=== PATIENT | male | born 1960 | race Caucasian/White ===

== ENCOUNTER 2018-02-16 10:49 | Observation (INO) | payer BC ==
[~2018-02-16] VITALS: Ht 177.8 cm; Wt 65.0 kg
[~2018-02-16 10:49] MED LIST: HYDR-2768 PO; LISI-363 PO; NORV10TA PO
[2018-02-16 11:00] VITALS: BP 159/76; PULSE 94; RESP 16; TEMP 97.3; O2SAT 99
[2018-02-16] MEDS ORDERED: AMLO10TA2 PO (11:13)
[2018-02-16] MEDS ORDERED: LISI-515 PO (11:13)
[2018-02-16 11:17] VITALS: BP 173/93; PULSE 91; RESP 18; O2SAT 99
--- NOTE | 2018-02-16 11:38 | PD ---
HPI Chief Complaint: Chest Pain Time Seen by Provider: 11:31 Travel History International Travel<30 days: No Contact w/Intl Traveler<30days: No Traveled to known affect area: No History of Present Illness HPI 57-year-old male with PMH of hypertension presents the ED for evaluation of intermittent chest pain times "a couple weeks." He states that around 830 last night he had sharp, 10/10 pain in the left chest with accompanying diaphoresis and shortness of breath. He states this lasted a few minutes before resolving. He endorses 2 more similar episodes last night. He states that today he has been having momentary similar episodes of CP that resolve spontaneously. He denies fever, chills, nausea, vomiting. He states that his father had a fatal NE at age 71. He endorses a 40+-pack-year smoking history, quit 5 years ago. Endorses occasional marijuana use. Denies alcohol or other illicit drug use. He treated at home with metoprolol with no improvement of symptoms. He is not compliant with his medications daily, states "I take them as I feel like I need them." He has never had a stress test or cardiac workup. He is followed by Dr. Hassan, resident clinic. 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 SKIN: Focused skin assessment warm/dry. HEAD: Normocephalic. EYES: No scleral icterus. No injection or drainage. NECK: Supple, trachea midline. No JVD or lymphadenopathy. CARDIOVASCULAR: Regular rate and rhythm without murmurs, gallops, or rubs. CHEST: +TTP of the left anterior precordium. No deformity or crepitus. No retractions. RESPIRATORY: Breath sounds clear and equal bilaterally. No accessory muscle use. GASTROINTESTINAL: Abdomen soft, non-tender, nondistended. Active bowel sounds. MUSCULOSKELETAL: No cyanosis, or edema. BACK: Nontender without obvious deformity. No CVA tenderness. Data Data Last Documented VS Vital Signs Date Time Temp Pulse Resp B/P (MAP) Pulse Ox O2 Delivery O2 Flow Rate FiO2 02/16/18 12:05 78 18 136/77 (96) 96 Room Air 02/16/18 11:00 97.3 Orders Orders Electrocardiogram (02/16/18 11:31) Ckmb (Isoenzyme) Profile (02/16/18 11:31) Complete Blood Count With Diff (02/16/18 11:31) Comprehensive Metabolic Panel (02/16/18 11:31) Magnesium (Mg) (02/16/18 11:31) Prothrombin Time / Inr (Pt) (02/16/18 11:31) Act Partial Throm Time (Ptt) (02/16/18 11:31) Troponin I (02/16/18 11:31) Ecg Monitoring (02/16/18 11:31) Bilateral Bp Monitoring (02/16/18 11:31) Iv Access Insert/Monitor (02/16/18 11:31) Oximetry (02/16/18 11:31) Aspirin (Aspirin) (02/16/18 11:45) Nitroglycerin 2% Oint (Nitroglycerin 2% (02/16/18 11:45) Sodium Chloride 0.9% Flush (Ns Flush) (02/16/18 11:45) Sodium Chlorid 0.9% 500 Ml Inj (Ns 500 M (02/16/18 11:45) Chest, Pa & Lat (02/16/18 11:31) Admit Order (Ed Use Only) (02/16/18 12:32) Labs Laboratory Tests Test 02/16/18 11:35 White Blood Count 6.6 TH/MM3 Red Blood Count 4.39 MIL/MM3 Hemoglobin 12.9 GM/DL Hematocrit 38.0 % Mean Corpuscular Volume 86.4 FL Mean Corpuscular Hemoglobin 29.3 PG Mean Corpuscular Hemoglobin Concent 33.9 % Red Cell Distribution Width 13.6 % Platelet Count 418 TH/MM3 Mean Platelet Volume 7.6 FL Neutrophils (%) (Auto) 62.8 % Lymphocytes (%) (Auto) 31.2 % Monocytes (%) (Auto) 4.4 % Eosinophils (%) (Auto) 1.4 % Basophils (%) (Auto) 0.2 % Neutrophils # (Auto) 4.2 TH/MM3 Lymphocytes # (Auto) 2.1 TH/MM3 Monocytes # (Auto) 0.3 TH/MM3 Eosinophils # (Auto) 0.1 TH/MM3 Basophils # (Auto) 0.0 TH/MM3 CBC Comment DIFF FINAL Differential Comment Prothrombin Time 10.0 SEC Prothromb Time International Ratio 1.0 RATIO Activated Partial Thromboplast Time 28.4 SEC Blood Urea Nitrogen 15 MG/DL Creatinine 1.28 MG/DL Random Glucose 97 MG/DL Total Protein 8.3 GM/DL Albumin 4.1 GM/DL Calcium Level 9.2 MG/DL Magnesium Level 2.2 MG/DL Alkaline Phosphatase 116 U/L Aspartate Amino Transf (AST/SGOT) 20 U/L Alanine Aminotransferase (ALT/SGPT) 19 U/L Total Bilirubin 0.4 MG/DL Sodium Level 141 MEQ/L Potassium Level 4.2 MEQ/L Chloride Level 106 MEQ/L Carbon Dioxide Level 24.9 MEQ/L Anion Gap 10 MEQ/L Estimat Glomerular Filtration Rate 58 ML/MIN Total Creatine Kinase 43 U/L Troponin I LESS THAN 0.02 NG/ML MDM Medical Decision Making Medical Screen Exam Complete: Yes Emergency Medical Condition: Yes Differential Diagnosis Musculoskeletal chest pain versus angina versus GERD versus ACS versus anxiety versus other Narrative Course 57-year-old male with PMH of hypertension presents the ED for evaluation of intermittent chest pain times "a couple weeks." He states that around 830 last night he had sharp, 10/10 pain in the left chest with accompanying diaphoresis and shortness of breath. He states this lasted a few minutes before resolving. He endorses 2 more similar episodes last night. He states that today he has been having momentary similar episodes of CP that resolve spontaneously. He denies fever, chills, nausea, vomiting. His father had a fatal NE at age 71. He endorses a 40+-pack-year smoking history, quit 5 years ago. Endorses occasional marijuana use. Denies alcohol or other illicit drug use. Noncompliant with antihypertensive medications. He has never had a stress test or cardiac workup. He is followed by Dr. Hassan, resident clinic. BP 173/93 on presentation. On physical exam the patient has already reproducible tenderness over the left precordium, no crepitus noted. Exam is otherwise reassuring. Patient was administered 325 mg aspirin by mouth and 1 inch of Nitropaste was applied to the chest. EKG rate 85, sinus rhythm. VT interval 127, QRS 93, QTC 397 ms. Normal axis. Incomplete RBBB. No acute ST changes. Reviewed by Dr. Mcmillan. CXR: Emphysematous changes of the lungs. No acute abnormality. No evidence of concerning mass. Cardiac enzymes: Negative 1. CBC: WBC 6.6. Hemoglobin 12.9. Coags: INR 1.0. CMP: BUN 15, creatinine 1.28. GFR 58. I discussed the results of the workup with the patient as well as my recommendation for evaluation the chest pain center. Patient is somewhat wary about possible heart cath. I explained that he has multiple risk factors that are concerning for CAD and stressed my recommendation for further evaluation. The patient is agreeable to this plan. Please see chest pain center notes for disposition. Diagnosis Primary Impression: Chest pain Qualified Codes: R07.9 - Chest pain, unspecified Jossie Mendoza Feb 16, 2018 11:38
[2018-02-16 11:43] VITALS: BP 173/92; PULSE 80
[2018-02-16] MEDS ORDERED: ASPIRIN 325 MG TAB PO ONE (11:45)
[2018-02-16] MEDS ORDERED: SODIUM CHLORIDE 0.9% FLUSH 10 ML FLUSH IVF PRN (11:45)
[2018-02-16] MEDS ORDERED: SODIUM CHLORID 0.9% 500 ML INJ 500 ML IV ONE (11:45)
[2018-02-16] MEDS ORDERED: NITROGLYCERIN 2% OINT 1 GM PACKET TOP ONE (11:45)
[2018-02-16 11:51] LABS: AUTOMATED NEUTROPHIL # 4.2 TH/MM3 (1.8-7.7); BASOPHIL % 0.2 % (0.0-2.0); EOSINOPHIL # 0.1 TH/MM3 (0-0.4); EOSINOPHIL % 1.4 % (0.0-4.0); HEMOGLOBIN 12.9 GM/DL (13.0-17.0); LYMPH % 31.2 % (9.0-44.0); LYMPHOCYTE # 2.1 TH/MM3 (1.0-4.8); MEAN CELL VOLUME 86.4 FL (80.0-100.0); MEAN CORPUSCULAR HEMOGLOBIN 29.3 PG (27.0-34.0); MEAN CORPUSCULAR HGB CONC 33.9 % (32.0-36.0); MEAN PLATELET VOLUME 7.6 FL (7.0-11.0); MONO % 4.4 % (0.0-8.0); MONOCYTE # 0.3 TH/MM3 (0-0.9); NEUT % 62.8 % (16.0-70.0); PLATELET COUNT 418 TH/MM3 (150-450); RED BLOOD COUNT 4.39 MIL/MM3 (4.50-5.90); RED CELL DISTRIBUTION WIDTH 13.6 % (11.6-17.2); WHITE BLOOD COUNT 6.6 TH/MM3 (4.0-11.0)
[2018-02-16 12:05] VITALS: BP 136/77; PULSE 78; RESP 18; O2SAT 96
--- NOTE | 2018-02-16 12:05 | RADRPT ---
EXAM DATE: 02/16/2018 11:46 AM EDT AGE/SEX: 57 years / Male INDICATIONS: Chest pain CLINICAL DATA: This is the patient's initial encounter. Patient reports that signs and symptoms have been present for 1 day and indicates a pain score of 2/10. MEDICAL/SURGICAL HISTORY: Emphysema. None. COMPARISON: No prior [place] exams available for comparison. FINDINGS: PA lateral views the chest demonstrate mild hyperinflation of the lungs. The lungs are otherwise sari r without evidence of pneumothorax or airspace consolidation. Heart size is normal. Pulmonary vascula ture is normal. Osseous structures are unremarkable. CONCLUSION: Emphysematous changes of the lungs. No acute abnormality. No evidence of concerning mass. Electronically signed by: Leslee Lozoya MD 02/16/2018 12:04 PM EDT
[2018-02-16 12:24] LABS: ALBUMIN 4.1 GM/DL (3.4-5.0); ALKALINE PHOSPHATASE 116 U/L (45-117); ALT (GPT) 19 U/L (12-78); AST (GOT) 20 U/L (15-37); BICARBONATE 24.9 MEQ/L (21.0-32.0); BLOOD UREA NITROGEN 15 MG/DL (7-18); CALCIUM 9.2 MG/DL (8.5-10.1); CHLORIDE 106 MEQ/L (98-107); CREATININE 1.28 MG/DL (0.60-1.30); GLOMERULAR FILTRATION RATE 58 ML/MIN (>89); GLUCOSE,RANDOM 97 MG/DL (74-106); MAGNESIUM 2.2 MG/DL (1.5-2.5); SODIUM (NA) 141 MEQ/L (136-145); TOTAL BILIRUBIN ADULT 0.4 MG/DL (0.2-1.0); TOTAL PROTEIN 8.3 GM/DL (6.4-8.2); TROPONIN I LESS THAN 0.02 NG/ML (0.02-0.05)
[2018-02-16] MEDS ORDERED: NITROGLYCERIN 0.4 MG SL 25 TABS/BTL SL PRN (13:30)
[2018-02-16] MEDS ORDERED: ACETAMINOPHEN 500 MG CPLT PO PRN (13:30)
[2018-02-16 14:49] VITALS: BP 127/73; PULSE 50; RESP 20; TEMP 97.1; O2SAT 99
[2018-02-16 14:53] VITALS: PULSE 49
--- NOTE | 2018-02-16 15:44 | EKG ---
Date Performed: 02/16/2018 Time Performed: 11:27:21 PTAGE: 57 years EKG: Sinus rhythm Within normal limits PREVIOUS TRACING : 04/12/2014 10.01 Since the previous tracing, no significant change not ed DOCTOR: Js Dumont Interpretating Date/Time 02/16/2018 15:43:45
--- NOTE | 2018-02-16 16:12 | HHI.HP ---
HPI Primary Care Physician Jose Ramon Hassan MD Chief Complaint Chest pain History of Present Illness 57-year-old male with history of hypertension, COPD, anxiety, depression, and former smoker presents emergency room for further evaluation of chest pain, hypertension, intermittent left arm numbness, and "kidney pain. I am onset 2 months. Location of chest pain include left anterior and substernal. Characterized as "burning and itching feeling, with intermittent quick onset sharp pain. Severe in severity. No radiation. Associated symptoms include nausea, dyspnea, and diaphoresis. Occasionally he will experience left arm numbness. Last evening's episode included abdominal pain and cramping which led to x1 episode of loose stools. Did not hurt to take a deep breath. Endorses area was tender during time of chest pain episode. Currently is chest pain-free. Endorses long-standing hypertension taking his medications, however often doubling doses over his concern retention. Quit taking hydrochlorothiazide due to "maybe my kidneys hurt." No dysuria, recent illness , fever, or chills. Reports being "highly stressed worrying over blood pressure. " Review of Systems General: No fatigue, weakness, fever, chills, or recent illness. HEENT: No WEBB, no vision changes, no nasal congestion or drainage, no dysphasia or history of GERD CV: As stated above. No current chest discomfort. RESP: No SOB, cough, wheeze, or recent URI. History of COPD GI: No nausea, vomiting, bowel changes. X1 loose stool last evening since resolved. No change in appetite : No dysuria, urgency. Increasing frequency. No hematuria EXT: No lower leg edema, no paraesthesias MS: No discomfort or change in ROM NEURO: No dizziness, difficulty with balance, LOC, motor/sensory deficits PSYCH: Long-standing history of anxiety, depression, and "anger issues." Quit taking Valium and Prozac due to drowsiness. SKIN: No rashes, no concerning lesions Past Family Social History Allergies: Coded Allergies: No Known Allergies (Unverified Allergy, Unknown, 02/16/18) Past Medical History Hypertension, anxiety, depression, COPD Reported Medications Reported Meds & Active Scripts Active Reported Amlodipine (Amlodipine Besylate) 10 Mg Tab 10 Mg PO DAILY Lisinopril 20 Mg Tab 20 Mg PO DAILY Active Ordered Medications Current Medications Medications (Trade) Dose Ordered Sig/Partha Route Start Time Stop Time Status Last Admin (NS Flush) 2 ml UNSCH PRN IVF 02/16/18 11:45 (NS Flush) 2 ml BID IV FLUSH 02/16/18 21:00 (Tylenol) 500 mg Q4H PRN PO 02/16/18 13:30 (Nitrostat Sl) 0.4 mg Q5M PRN SL 02/16/18 13:30 (Aspirin) 325 mg DAILY PO 02/17/18 09:00 Family History Noncontributory for early onset cardiovascular disease. Social History Known hypertension. No known hyperlipidemia or diabetes. Former smoker. Quit 5 year ago. Also quit alcohol 5 year ago. Endorses marijuana use. Single. 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 Past cardiac testing None Physical Exam Vital Signs Vital Signs Date Time Temp Pulse Resp B/P (MAP) Pulse Ox O2 Delivery O2 Flow Rate FiO2 02/16/18 14:53 49 02/16/18 14:49 97.1 50 20 127/73 (91) 99 02/16/18 14:43 02/16/18 12:05 78 18 136/77 (96) 96 Room Air 02/16/18 11:43 80 173/92 (119) 02/16/18 11:17 91 18 173/93 (119) 99 Room Air 02/16/18 11:00 97.3 94 16 159/76 (103) 99 Physical Exam GENERAL: Alert WN, WD, NAD, pleasant, male who appears older than stated age HEAD: NC, AT NECK: Supple, no masses, trachea midline CV: RRR, without murmur, rub, gallop, no JVD, S1-S2 no S3-S4. No carotid or femoral bruits. RESP: Clear lungs throughout bilateral, no crackles, wheeze, rhonchi, symmetrical chest rise, nonlabored, able to speak in full sentences ABD: Soft, NT, ND, no masses, positive bowel tones EXT: Pulses +2x4, no dependent edema MS: Normal tone x4 extremities, nontender, no obvious deformities, full range of motion NEURO: CN II through CN XII grossly intact, motor strength 5/5, gait WNL PSYCH: A+O x3, flat affect, anxious mood, appropriate speech, insight and judgment SKIN: Normal turgor, normal texture, no lesions, no rashes, brisk cap refill, even hair distribution, solar damage, tattoos Laboratory Laboratory Tests Test 02/16/18 11:35 02/16/18 14:45 White Blood Count 6.6 Red Blood Count 4.39 Hemoglobin 12.9 Hematocrit 38.0 Mean Corpuscular Volume 86.4 Mean Corpuscular Hemoglobin 29.3 Mean Corpuscular Hemoglobin Concent 33.9 Red Cell Distribution Width 13.6 Platelet Count 418 Mean Platelet Volume 7.6 Neutrophils (%) (Auto) 62.8 Lymphocytes (%) (Auto) 31.2 Monocytes (%) (Auto) 4.4 Eosinophils (%) (Auto) 1.4 Basophils (%) (Auto) 0.2 Neutrophils # (Auto) 4.2 Lymphocytes # (Auto) 2.1 Monocytes # (Auto) 0.3 Eosinophils # (Auto) 0.1 Basophils # (Auto) 0.0 CBC Comment DIFF FINAL Differential Comment Prothrombin Time 10.0 Prothromb Time International Ratio 1.0 Activated Partial Thromboplast Time 28.4 Blood Urea Nitrogen 15 Creatinine 1.28 Random Glucose 97 Total Protein 8.3 Albumin 4.1 Calcium Level 9.2 Magnesium Level 2.2 Alkaline Phosphatase 116 Aspartate Amino Transf (AST/SGOT) 20 Alanine Aminotransferase (ALT/SGPT) 19 Total Bilirubin 0.4 Sodium Level 141 Potassium Level 4.2 Chloride Level 106 Carbon Dioxide Level 24.9 Anion Gap 10 Estimat Glomerular Filtration Rate 58 Total Creatine Kinase 43 Troponin I LESS THAN 0.02 Result Diagram: 02/16/18 1135 02/16/18 1135 Imaging Last 48 hours Impressions Chest X-Ray 02/16/18 1131 Signed Impressions: CONCLUSION: Emphysematous changes of the lungs. No acute abnormality. No evidence of concer barrington mass. Course EKG NSR, no st t segment changes Caprini VTE Risk Assessment Caprini VTE Risk Assessment: No/Low Risk (score <= 1) Caprini Risk Assessment Model Point Value = 1 Point Value = 2 Point Value = 3 Point Value = 5 Age 41-60 Minor surgery BMI > 25 kg/m2 Swollen legs Varicose veins or History of unexplained or recurrent spontaneous Oral contraceptives or hormone replacement Sepsis (< 1 month) Serious lung disease, including pneumonia (< 1 month) Abnormal pulmonary function Acute myocardial infarction Congestive heart failure (< 1 month) History of inflammatory bowel disease Medical patient at bed rest Age 61-74 Arthroscopic surgery Major open surgery (> 45 min) Laparoscopic surgery (> 45 min) Malignancy Confined to bed (> 72 hours) Immobilizing plaster cast Central venous access Age >= 75 History of VTE Family history of VTE Factor V Leiden Prothrombin [id number] Lupus anticoagulant Anticardiolipin antibodies Elevated serum homocysteine Heparin-induced thrombocytopenia Other congenital or acquired thrombophilia Stroke (< 1 month) Elective arthroplasty Hip, pelvis, or leg fracture Acute spinal cord injury (< 1 month) Prophylaxis Regimen Total Risk Factor Score Risk Level Prophylaxis Regimen 0-1 Low Early ambulation 2 Moderate Order ONE of the following: *Sequential Compression Device (SCD) *Heparin 5000 units SQ BID 3-4 Higher Order ONE of the following medications: *Heparin 5000 units SQ TID *Enoxaparin/Lovenox 40 mg SQ daily (WT < 150 kg, CrCl > 30 mL/min) *Enoxaparin/Lovenox 30 mg SQ daily (WT < 150 kg, CrCl > 10-29 mL/min) *Enoxaparin/Lovenox 30 mg SQ BID (WT < 150 kg, CrCl > 30 mL/min) AND/OR *Sequential Compression Device (SCD) 5 or more Highest Order ONE of the following medications: *Heparin 5000 units SQ TID (Preferred with Epidurals) *Enoxaparin/Lovenox 40 mg SQ daily (WT < 150 kg, CrCl > 30 mL/min) *Enoxaparin/Lovenox 30 mg SQ daily (WT < 150 kg, CrCl > 10-29 mL/min) *Enoxaparin/Lovenox 30 mg SQ BID (WT < 150 kg, CrCl > 30 mL/min) AND *Sequential Compression Device (SCD) Assessment and Plan Assessment and Plan #1 Atypical chest pain-admit to chest pain center. Ruled out with 2 sets of EKGs and cardiac enzymes. Seen and evaluated by Dr. Js Dumont. Proceeded with exercise stress testing which was unremarkable and did not suggest ischemia. Discharge home with follow-up with PCP. Add metoprolol 25 mg twice daily to current antihypertensive medication regimen. Reassurance provided and discussed likely multiple symptoms are related to somatic symptoms related to stress. Encouraged him to discuss with his PCP for other antidepressant medications that may not cause drowsiness. Patient verbalizes understanding and agreeable to plan of care. In regards to concern over increase in urinary frequency obtain UA, although suspect patient may have been retaining fluid due to reported high sodium diet which she has since tried to reduce sodium intake. Selena Silveira Feb 16, 2018 16:12
[2018-02-16 16:19] LABS: TROPONIN I LESS THAN 0.02 NG/ML (0.02-0.05)
[2018-02-16 16:59] LABS: BILIRUBIN, URINE NEG (NEG); BLOOD, URINE NEG (NEG); GLUCOSE,URINE NEG (NEG); KETONE, URINE NEG (NEG); NITRITE,URINE NEG (NEG); URINE COLOR LIGHT-YELLOW (YELLW/STRAW); URINE LEUKOCYTE ESTERASE NEG (NEG)
[2018-02-16] MEDS ORDERED: METO25TA3 PO (17:14)
--- NOTE | 2018-02-16 17:14 | HHI.DCPOC ---
Discharge Care Plan Diagnosis: (1) Atypical chest pain (2) Anxiety (3) Hypertension Goals to Promote Your Health * To prevent worsening of your condition and complications * To maintain your health at the optimal level Directions to Meet Your Goals Take your medications as prescribed Follow your dietary instruction Follow activity as directed Keep your appointments as scheduled Take your immunizations and boosters as scheduled If your symptoms worsen call your PCP, if no PCP go to Urgent Care Center or Emergency Room Smoking is Dangerous to Your Health. Avoid second hand smoke Call the 24-hour hour crisis hotline for domestic abuse at Selena Silveira Feb 16, 2018 17:14
--- NOTE | 2018-02-16 17:24 | EKG ---
Date Performed: 02/16/2018 Time Performed: 14:42:12 PTAGE: 57 years EKG: SINUS BRADYCARDIA BORDERLINE ECG PREVIOUS TRACING : 02/16/2018 11.27 Since previous tracing, no significant change noted DOCTOR: Js Dumont Interpretating Date/Time 02/16/2018 17:23:31
--- NOTE | 2018-02-16 17:24 | TR ---
Date Performed: 02/16/2018 Time Performed: 16:47:01 DOCTOR: Js Dumont DRUG LIST: CLINICAL HISTORY: CHEST PAIN REASON FOR TEST: Chest pain REASON FOR ENDING: OBSERVATION: CONCLUSION: Ramos protocol completed. Stopped sec to exceeding target heart rate and leg fatigue . Maximum RO=870 Target HR Mgqoszbi=733.0% Maximum RH=800/86 Total Exercise Time=8:01. No reprod ch est discomfort. No st t segment changes. No ectopy. Good exercise tolerance. Normal bp response. Marcelino very quick and unremarkable. COMMENTS: Conclusion: Normal treadmill exercise. No evidence of ischemia.
[2018-02-16] MEDS ORDERED: SODIUM CHLORIDE 0.9% FLUSH 10 ML FLUSH IV FLUSH SCH (21:00)
[2018-02-17] MEDS ORDERED: ASPIRIN 325 MG TAB PO SCH (09:00)
== END 2018-02-16 18:25 | disposition home or self-care (01) ==
LOC: NEPE 10:49 → NEDA 12:34 → NEPHCDU 14:38
DX: R07.89 Other chest pain (principal); R00.1 Bradycardia, unspecified; R11.0 Nausea; R61 Generalized hyperhidrosis; R06.00 Dyspnea, unspecified; R20.0 Anesthesia of skin; R10.9 Unspecified abdominal pain; I10 Essential (primary) hypertension; I45.10 Unspecified right bundle-branch block; J44.9 Chronic obstructive pulmonary disease, unspecified; F41.9 Anxiety disorder, unspecified; F32.9 Major depressive disorder, single episode, unspecified; F12.90 Cannabis use, unspecified, uncomplicated; Z91.14 Patient's other noncompliance with medication regimen; Z87.891 Personal history of nicotine dependence; Z79.899 Other long term (current) drug therapy; Z82.49 Family history of ischemic heart disease and other diseases of the circulatory system
CPT/HCPCS: 71046; 80053; 81001; 82550; 83735; 84484; 85025; 85610; 85730; 93005; 93017; 99285; G0378; J7040